=== PATIENT | female | born 2000 | race Caucasian/White ===

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

== ENCOUNTER 2024-01-15 10:50 | Outpatient (CLI) | payer BC, MEDICAID ==
[~2024-01-15] VITALS: Ht 162.6 cm; Wt 113.2 kg
[2024-01-15] VITALS (9 sets, daily range): BP systolic 122–148; BP diastolic 78–88; PULSE 71–96; TEMP 98.1
[2024-01-15] MEDS ORDERED: LR 1,000 ML IV PRN (11:00)
--- NOTE | 2024-01-15 11:00 | NUR ---
PT AND MOTHER OF PT ON THE UNIT FOR OBSERVATION FROM THE OFFICE DUE TO ABNORMAL MONITORING RESULTS.PT DENIES LOF/VB AND CONTRACTIONS.PT STATES, "BABY IS NOT ACTIVE USUAL". POC REVIEWED WITH PT.PT ADVISED TO CHANGE INTO GOWN. EFM AND TOCO APPLIED AND TRACING CATEGORY 1.PT VERBALIZED UNDERSTANDING.
[2024-01-15] MEDS ORDERED: GLUCOPHAGE XR500 M1 PO (11:16)
[2024-01-15] MEDS ORDERED: TRANDATE 200MG200 MG PO (11:17)
[2024-01-15] MEDS ORDERED: PRENATAL TABLET PO (11:19)
== END 2024-01-15 15:30 | disposition home or self-care (01) ==
LOC: LDRO 10:50
DX: Z34.90 Encounter for supervision of normal pregnancy, unspecified, unspecified trimester (principal); Z3A.00 Weeks of gestation of pregnancy not specified
CPT/HCPCS: J7120

== ENCOUNTER 2024-02-23 02:49 | Emergency (ER) | payer BC, MEDICAID ==
[~2024-02-23] VITALS: Ht 162.6 cm; Wt 100.0 kg
[~2024-02-23 02:49] MED LIST: GLUCOPHAGE XR500 M1 PO; MOTRIN 800800 MG/TAB PO; PRENATAL TABLET PO; TRANDATE 200MG200 MG PO
[2024-02-23 03:02] VITALS: TEMP 98
[2024-02-23] MEDS ORDERED: NS 1,000 ML IV ONE (03:30)
[2024-02-23] MEDS ORDERED: Ondansetron 4 MG/2 ML VIAL IV ONE (03:30)
[2024-02-23] MEDS ORDERED: fentaNYL 50 MCG/ML 2 ML VIAL IV ONE (03:30)
[2024-02-23 03:51] LABS: BASO # 0.1 K/mm3 (0.0-0.2); BASO % 0.8 % (0.0-2.0); EOS # 0.2 K/mm3 (0.0-0.7); EOS % 2.4 % (0.0-4.0); GRAN # 5.5 K/mm3 (1.4-6.5); GRAN % 74.8 % (42.2-75.2); HEMATOCRIT 40.1 % (37.0-47.0); LYMPH # 1.1 K/mm3 (1.2-3.4); LYMPH % 15.1 % (20.0-51.0); MEAN CELL VOLUME 85 fl (80.0-100.0); MEAN CORPUSCULAR HEMOGLOBIN 27 pg (27-31); MEAN CORPUSCULAR HGB CONC 32 g/dl (33.0-37.0); MEAN PLATELET VOLUME 10.1 fl (7.4-10.4); MONO # 0.5 K/mm3 (0.1-0.6); MONO % 6.6 % (1.7-9.3); PLATELET COUNT 243 K/mm3 (130-400); RED BLOOD COUNT 4.74 M/mm3 (4.10-5.30); REDCELL DISTRIBUTION WIDTH-CV 13.1 % (11.5-14.5)
[2024-02-23 04:17] LABS: ALBUMIN 4.1 g/dL (3.5-5.0); BILIRUBIN,TOTAL 2.7 mg/dL (0.2-1.2); CALCIUM 10.2 mg/dL (8.4-10.2); CREATININE, serum 0.92 mg/dL (0.57-1.11); POTASSIUM 3.8 mEq/L (3.5-4.5); TOTAL PROTEIN 7.9 g/dl (6.2-8.1)
[2024-02-23 05:17] LABS: URINE APPEARANCE CLEAR (CLEAR/HAZY); URINE BLOOD 2+ (NEGATIVE); URINE COLOR Dark Yellow (YELLOW); URINE GLUCOSE NEGATIVE (NEGATIVE); URINE KETONE TRACE (NEGATIVE); URINE NITRATE NEGATIVE (NEGATIVE); URINE PROTEIN(semi-quant) TRACE (NEGATIVE)
[2024-02-23 05:19] LABS: COLLECTION METHOD CLEAN CATCH
[2024-02-23] MEDS ORDERED: SEPTRA DS 8001 TAB PO (07:30)
[2024-02-23] MEDS ORDERED: REGLAN 10MG10 MG/TAB PO (07:30)
[2024-02-23] MEDS ORDERED: TORADOL 10MG TA10 MG PO (07:30)
[2024-02-23 07:46] VITALS: BP 120/86; PULSE 68
== END 2024-02-23 07:48 | disposition home or self-care (01) ==
LOC: COL.ER 02:49
PROVIDERS: Emergency Medicine
DX: K80.20 Calculus of gallbladder without cholecystitis without obstruction (principal); N39.0 Urinary tract infection, site not specified
CPT/HCPCS: J2405; J3010; J7030

== ENCOUNTER 2024-04-15 05:33 | Day surgery (SDC) | payer MEDICAID ==
[~2024-04-15] VITALS: Ht 162.6 cm; Wt 98.8 kg
[~2024-04-15 05:33] MED LIST changes: +Indocyanine Green 12.5 MG in Water For Injection,Sterile 2.5 ML IV ONE; +LR 1,000 ML IV SCH; +REGLAN 10MG10 MG/TAB PO; +SEPTRA DS 8001 TAB PO; +TORADOL 10MG TA10 MG PO; +ceFAZolin 1 G in Water For Injection,Sterile 10 ML IV ONE
[2024-04-15] MEDS ORDERED: INDOCYANINE GREEN IV SCH (06:45)
[2024-04-15] MEDS ORDERED: Indocyanine Green 12.5 MG in Water For Injection,Sterile 2.5 ML IV ONE (07:00)
[2024-04-15] MEDS ORDERED: Ondansetron 4 MG/2 ML VIAL ONE (07:05)
[2024-04-15] MEDS ORDERED: Lidocaine PF 2% (20 MG/ML) 5 ML VIAL ONE (07:05)
[2024-04-15] MEDS ORDERED: fentaNYL 50 MCG/ML 5 ML VIAL ONE (07:05)
[2024-04-15] MEDS ORDERED: Ketorolac 30 MG/ML VIAL ONE (07:05)
[2024-04-15] MEDS ORDERED: NS 10 ML IV ONE (07:05)
[2024-04-15] MEDS ORDERED: dexAMETHasone 10 MG/ML VIAL ONE (07:05)
[2024-04-15] MEDS ORDERED: Rocuronium 50 MG/5 ML Multi-Dose VIAL ONE (07:06)
[2024-04-15 07:15] LABS: ALBUMIN 4.1 g/dL (3.5-5.0); BILIRUBIN,TOTAL 1.1 mg/dL (0.2-1.2); CALCIUM 9.7 mg/dL (8.4-10.2); CREATININE, serum 0.79 mg/dL (0.57-1.11); POTASSIUM 4.2 mEq/L (3.5-4.5); TOTAL PROTEIN 7.5 g/dl (6.2-8.1)
[2024-04-15] MEDS ORDERED: Ibuprofen 600 MG TAB PO PRN (07:15)
[2024-04-15] MEDS ORDERED: Acetaminophen 325 MG TAB PO PRN (07:15)
[2024-04-15] MEDS ORDERED: fentaNYL 50 MCG/ML 1 ML SYRINGE/VIAL [PACU/SDC ONLY] IV PRN (07:15)
[2024-04-15] MEDS ORDERED: HYDROmorphone 1 MG/1 ML SYRINGE [PACU/SDC ONLY] IV PRN (07:15)
[2024-04-15] MEDS ORDERED: Ondansetron 4 MG/2 ML VIAL IV PRN ×2 (07:15)
[2024-04-15] MEDS ORDERED: droPERidol 2.5 MG/ML 2 ML VIAL IV PRN (07:15)
[2024-04-15] MEDS ORDERED: hydrALAZINE 20 MG/ML 1 ML VIAL IV PRN (07:15)
[2024-04-15] MEDS ORDERED: Meperidine 50 MG/ML 1 ML VIAL IV PRN (07:15)
[2024-04-15] MEDS ORDERED: oxyCODONE/Acetaminophen 5-325 MG TAB PO PRN (07:15)
[2024-04-15] MEDS ORDERED: PERCOCET 325 MG1 TA2 PO (07:16)
[2024-04-15 09:50] VITALS: BP 134/87; PULSE 92; TEMP 97.5
[2024-04-15 10:05] VITALS: BP 134/84; PULSE 94
[2024-04-15 10:12] VITALS: BP 131/89; PULSE 90; TEMP 98
[2024-04-15 10:20] VITALS: BP 130/83; PULSE 96
[2024-04-15 10:35] VITALS: BP 132/87; PULSE 96
[2024-04-15 10:50] VITALS: BP 130/87; PULSE 92
--- NOTE | 2024-04-15 11:10 | NUR ---
0950 REURNS TO ROOM 1 PER CART WITH HOB ELEVATED 30 DEGREES. DROWSY. RESP UNLABORED. VITAL SIGNS OBTAINED. ABD SOFT. INCISIONS X 4 WITH BANDAID TO EACH, CLEAN DRY AND INTACT. CALL LIGHT AT SIDE. SIGNIFICANT OTHER IN ROOM 1005 DOZES. 1020 AROUSES SPONTANEOUSLY. TOLERATES PO WATER AND JUICE WITHOUT NAUSEA 1035 DISCHARGE INSTRUCTIONS REVIEWED. PATIENT VERBALIZES UNDERSTANDING. COPY PROVIDED IN DISCHARGE FOLDER 1050 SITS ON EDGE OF CART, THEN AMBULATES TO BATHROOM WITH STANDBY ASSIST. VOIDS 1100 DRESSES WITH MINIMAL ASSIST
== END 2024-04-15 11:10 | disposition home or self-care (01) ==
LOC: SDCO 05:33
PROVIDERS: Surgery
DX: K80.12 Calculus of gallbladder with acute and chronic cholecystitis without obstruction (principal); E66.01 Morbid (severe) obesity due to excess calories; Z39.2 Encounter for routine postpartum follow-up; Z68.36 Body mass index [BMI] 36.0-36.9, adult
CPT/HCPCS: J0360; J0690; J1100; J1171; J1885; J1920; J2405; J2704; J3010; J7120